=== PATIENT | male | born 1970 | race African-American/Black ===

== ENCOUNTER 2018-01-13 08:17 | Emergency (ER) | payer OTHER ==
[~2018-01-13] VITALS: Ht 165.1 cm; Wt 66.7 kg
[2018-01-13 08:22] VITALS: BP 113/59
[2018-01-13] MEDS ORDERED: FLEXERIL PO (09:09)
== END 2018-01-13 08:54 | disposition home or self-care (01) ==
LOC: ER 08:17
DX: H00.011 Hordeolum externum right upper eyelid (principal); F17.210 Nicotine dependence, cigarettes, uncomplicated; Z88.6 Allergy status to analgesic agent; Z88.8 Allergy status to other drugs, medicaments and biological substances